=== PATIENT | female | born 1975 | race African-American/Black ===

== ENCOUNTER 2018-02-09 16:40 | Emergency (ER) | payer OTHER ==
[~2018-02-09] VITALS: Ht 167.6 cm; Wt 92.0 kg
[~2018-02-09 16:40] MED LIST: MULTI VITAMIN
[2018-02-09 16:41] VITALS: BP 104/66
[2018-02-09] MEDS ORDERED: ACETAMINOPHEN WITH CODEINE 300/30MG TABLET PO ONE (17:00)
== END 2018-02-09 17:37 | disposition home or self-care (01) ==
LOC: ER 17:32
DX: M54.2 Cervicalgia (principal); J45.909 Unspecified asthma, uncomplicated; Z88.0 Allergy status to penicillin; Z98.890 Other specified postprocedural states
CPT/HCPCS: 81025; 99283

== ENCOUNTER 2018-06-30 17:08 | Emergency (ER) | payer OTHER ==
[~2018-06-30] VITALS: Ht 175.3 cm; Wt 97.0 kg
[2018-06-30] MEDS ORDERED: BACITRACIN ZINC OINT UDPKT TOP ONE (23:00)
[2018-06-30 23:20] VITALS: BP 158/89
== END 2018-06-30 23:23 | disposition home or self-care (01) ==
LOC: ER 17:08
DX: S81.802A Unspecified open wound, left lower leg, initial encounter (principal); W34.09XA Accidental discharge from other specified firearms, initial encounter; Y93.89 Activity, other specified; Y92.89 Other specified places as the place of occurrence of the external cause; Y99.8 Other external cause status
CPT/HCPCS: 99282

== ENCOUNTER 2021-06-03 12:13 | Emergency (ER) | payer OTHER ==
[~2021-06-03] VITALS: Ht 180.3 cm; Wt 96.0 kg
[2021-06-03 12:19] VITALS: BP 110/62
== END 2021-06-03 14:52 | disposition home or self-care (01) ==
LOC: ER 12:13
DX: M79.662 Pain in left lower leg (principal); F12.10 Cannabis abuse, uncomplicated; J45.909 Unspecified asthma, uncomplicated; Z98.890 Other specified postprocedural states; Z87.828 Personal history of other (healed) physical injury and trauma; Z88.0 Allergy status to penicillin
CPT/HCPCS: 93971; 99284

== ENCOUNTER 2021-06-17 23:12 | Emergency (ER) | payer OTHER ==
[~2021-06-17] VITALS: Ht 175.3 cm; Wt 96.0 kg
[2021-06-18] MEDS ORDERED: HYDROCODONE/ACETAMINOPHEN 5/325MG TABLET PO STA (00:33)
[2021-06-18] MEDS ORDERED: ONDANSETRON 4MG ODT PO STA (00:33)
[2021-06-18] MEDS ORDERED: FAMOTIDINE 20MG TABLET PO ONE (00:45)
[2021-06-18 00:51] LABS: EOSINOPHILS % 3.6 % (0.0-5.0); HEMOGLOBIN. 10.2 g/dL (12.0-16.0); LYMPHOCYTES % 34.2 % (20.0-50.0); MEAN CORPUSCULAR HEMOGLOBIN 26.6 pg (28.0-32.0); MEAN PLATELET VOLUME 9.2 fl (7.4-10.4); MONOCYTES % 10.4 % (2.0-8.0); NEUTROPHILS % 50.8 % (40.0-76.0); PLATELET 310 x1000/uL (130-400); RED BLOOD CELL COUNT 3.83 mill/uL (4.2-5.4); RED CELL DISTRIBUTION WIDTH 14.9 % (11.6-14.6)
[2021-06-18 01:05] LABS: CHLORIDE 108 mEq/L (98-107)
[2021-06-18 01:15] LABS: CLARITY URINE CLEAR (CLEAR); COLOR URINE DARK YELLOW (YELLOW); KETONES URINE NEGATIVE (NEGATIVE); LEUKOCYTE ESTERASE URINE NEGATIVE (NEGATIVE); NITRITE URINE NEGATIVE (NEGATIVE); OCCULT BLOOD URINE NEGATIVE (NEGATIVE); PROTEIN URINE NEGATIVE (NEGATIVE); SPECIFIC GRAVITY URINE 1.017 (1.005-1.030); UROBILINOGEN URINE 0.2 E.U./dL (0.2-1.0)
[2021-06-18 01:36] LABS: PROTHROMBIN TIME 10.6 sec (9.6-11.0)
[2021-06-18] MEDS ORDERED: PROT20 MT (06:51)
[2021-06-18 08:50] VITALS: BP 100/75
== END 2021-06-18 08:50 | disposition home or self-care (01) ==
LOC: ER 23:12
DX: R10.11 Right upper quadrant pain (principal); J45.909 Unspecified asthma, uncomplicated; Z98.890 Other specified postprocedural states; Z88.0 Allergy status to penicillin
CPT/HCPCS: 36415; 76705; 80053; 81003; 83690; 85025; 85610; 99285; Q0162

== ENCOUNTER 2022-05-25 10:36 | Emergency (ER) | payer OTHER ==
[~2022-05-25] VITALS: Ht 175.3 cm; Wt 93.0 kg
[~2022-05-25 10:36] MED LIST changes: +PROT20 MT
[2022-05-25 10:43] VITALS: BP 109/55
[2022-05-25] MEDS ORDERED: ACETAMINOPHEN 325MG TABLET PO STA (12:31)
[2022-05-25] MEDS ORDERED: ONDANSETRON 4MG ODT PO STA (12:31)
[2022-05-25 13:06] LABS: BASOPHILS % 2.3 % (0.0-2.0); EOSINOPHILS % 4.1 % (0.0-5.0); HEMATOCRIT. 28.5 % (36.0-48.0); HEMOGLOBIN. 8.9 g/dL (12.0-16.0); LYMPHOCYTES % 29.2 % (20.0-50.0); MEAN CORPUSCULAR VOLUME 73.7 fL (81.0-99.0); MEAN PLATELET VOLUME 8.6 fl (7.4-10.4); MONOCYTES % 9.4 % (2.0-8.0); PLATELET 256 x1000/uL (130-400); RED BLOOD CELL COUNT 3.87 mill/uL (4.2-5.4); RED CELL DISTRIBUTION WIDTH 17.2 % (11.6-14.6)
[2022-05-25 13:12] LABS: CHLORIDE 107 mEq/L (98-107)
[2022-05-25 13:13] LABS: CLARITY URINE CLEAR (CLEAR); COLOR URINE YELLOW (YELLOW); KETONES URINE NEGATIVE (NEGATIVE); LEUKOCYTE ESTERASE URINE NEGATIVE (NEGATIVE); NITRITE URINE NEGATIVE (NEGATIVE); OCCULT BLOOD URINE NEGATIVE (NEGATIVE); PH URINE 5.5 (4.5-8.0); PROTEIN URINE NEGATIVE (NEGATIVE); SPECIFIC GRAVITY URINE 1.013 (1.005-1.030); UROBILINOGEN URINE 0.2 E.U./dL (0.2-1.0)
[2022-05-25 13:23] LABS: HCG SCREEN NEGATIVE
[2022-05-25] MEDS ORDERED: IBUP-2028 MT (15:31)
[2022-05-25] MEDS ORDERED: POLY17PO3 MT (15:31)
== END 2022-05-25 16:02 | disposition home or self-care (01) ==
LOC: ER 10:36
DX: R10.31 Right lower quadrant pain (principal); J45.909 Unspecified asthma, uncomplicated; Z98.890 Other specified postprocedural states
CPT/HCPCS: 36415; 74176; 80053; 81003; 81025; 83690; 84703; 85025; 99284; Q0162

== ENCOUNTER 2024-02-09 07:09 | Emergency (ER) | payer OTHER ==
[~2024-02-09] VITALS: Ht 175.3 cm; Wt 92.0 kg
[~2024-02-09 07:09] MED LIST changes: +IBUP-2028 MT; +POLY17PO3 MT
[2024-02-09 07:43] LABS: BASOPHILS % 1.1 % (0.0-2.0); EOSINOPHILS % 13.2 % (0.0-5.0); HEMATOCRIT. 34.8 % (36.0-48.0); HEMOGLOBIN. 11.1 g/dL (12.0-16.0); LYMPHOCYTES % 27.5 % (20.0-50.0); MEAN CORPUSCULAR HEMOGLOBIN 24.8 pg (28.0-32.0); MEAN CORPUSCULAR VOLUME 77.6 fL (81.0-99.0); MEAN PLATELET VOLUME 8.9 fl (7.4-10.4); MONOCYTES % 6.5 % (2.0-8.0); NEUTROPHILS % 51.7 % (40.0-76.0); PLATELET 326 x1000/uL (130-400); RED BLOOD CELL COUNT 4.48 mill/uL (4.2-5.4); RED CELL DISTRIBUTION WIDTH 22.1 % (11.6-14.6); WHITE BLOOD COUNT 4.2 x1000/uL (4.5-11.0)
[2024-02-09 07:44] LABS: ADD RBC MORPHOLOGY YES; DIFFERENTIAL COMMENT 1
[2024-02-09 07:55] LABS: CHLORIDE 108 mEq/L (98-107); POTASSIUM 3.6 mEq/L (3.5-5.1); SODIUM 141 mEq/L (136-145)
[2024-02-09 07:56] LABS: CALCIUM 9.5 mg/dL (8.7-10.4); CARBON DIOXIDE 24 mEq/L (21-32)
[2024-02-09 08:01] LABS: CREATININE 0.7 mg/dL (0.6-1.0); GLUCOSE 99 mg/dL (70-105); UREA NITROGEN BLOOD 7 mg/dL (9-23)
[2024-02-09 08:03] LABS: TROPONIN I HIGH SENSITIVITY < 4 ng/L (3.0-34)
[2024-02-09 08:10] LABS: HCG SCREEN NEGATIVE
[2024-02-09 08:12] VITALS: PULSE 63; RESP 18; O2SAT 98
[2024-02-09] MEDS: IPRATROPIUM BROMIDE (0.02%) 0.5MG/2.5ML NEB HHN STA (08:12)
[2024-02-09] MEDS: ALBUTEROL (0.083%) 2.5MG/3ML NEB HHN SCH (08:12)
[2024-02-09 08:32] VITALS: PULSE 60; RESP 18; O2SAT 100
[2024-02-09] MEDS: PREDNISONE 20MG TABLET PO STA (08:34)
[2024-02-09 09:05] VITALS: PULSE 66; RESP 18; O2SAT 100
[2024-02-09 09:08] LABS: CLARITY URINE CLEAR (CLEAR); COLOR URINE YELLOW (YELLOW); GLUCOSE URINE NEGATIVE (NEGATIVE); KETONES URINE NEGATIVE (NEGATIVE); LEUKOCYTE ESTERASE URINE NEGATIVE (NEGATIVE); NITRITE URINE NEGATIVE (NEGATIVE); OCCULT BLOOD URINE TRACE (NEGATIVE); PH URINE 5.5 (4.5-8.0); PROTEIN URINE NEGATIVE (NEGATIVE); SPECIFIC GRAVITY URINE 1.006 (1.005-1.030); UROBILINOGEN URINE 0.2 E.U./dL (0.2-1.0)
[2024-02-09 09:14] LABS: UCG SCREEN NEGATIVE
[2024-02-09 09:18] LABS: SQUAMOUS EPITHELIAL CELL URINE 1+ /lpf (RARE/1+)
[2024-02-09 09:19] LABS: RBC URINE NONE SEEN /hpf (0-2); WBC URINE 0-2 /hpf (0-2)
[2024-02-09 09:20] LABS: BACTERIA URINE TRACE
[2024-02-09] MEDS ORDERED: ALBU05 NEB (09:48)
[2024-02-09] MEDS ORDERED: ALBU6.7H15 INH (09:48)
[2024-02-09] MEDS ORDERED: P50 MT (09:48)
[2024-02-09 10:00] VITALS: BP 131/72; PULSE 82; RESP 18; TEMP 98.3
[2024-02-09 14:15] LABS: ANISOCYTOSIS 3+; MICROCYTOSIS 1+; PLATELET ESTIMATE NORMAL
== END 2024-02-09 10:25 | disposition home or self-care (01) ==
LOC: ER 07:09
DX: Z98.890 Other specified postprocedural states (principal); Z79.899 Other long term (current) drug therapy; J45.901 Unspecified asthma with (acute) exacerbation
CPT/HCPCS: 80048; 81003; 81025; 84703; 85025; 84484; 36415; 71045; 94640; 93005; 99285; J7512; Z7610 ×3

== ENCOUNTER 2024-02-16 04:24 | Emergency (ER) | payer OTHER ==
[~2024-02-16] VITALS: Ht 167.6 cm; Wt 95.0 kg
[~2024-02-16 04:24] MED LIST changes: +ALBU05 NEB; +ALBU6.7H15 INH; +P50 MT
[2024-02-16] MEDS ORDERED: P20 MT (08:29)
[2024-02-16] MEDS: PREDNISONE 20MG TABLET PO NR (08:32)
[2024-02-16 08:42] VITALS: PULSE 65; RESP 18; O2SAT 99
[2024-02-16] MEDS: ALBUTEROL (0.083%) 2.5MG/3ML NEB HHN SCH (08:42)
[2024-02-16] MEDS: IPRATROPIUM BROMIDE (0.02%) 0.5MG/2.5ML NEB HHN NR (08:42)
[2024-02-16] MEDS: ALBUTEROL (0.083%) 2.5MG/3ML NEB ONE (08:42)
[2024-02-16 09:13] VITALS: PULSE 70; RESP 18; O2SAT 99
[2024-02-16 09:43] VITALS: PULSE 67; RESP 18; O2SAT 99
[2024-02-16 10:13] VITALS: BP 141/74; PULSE 82; RESP 18; TEMP 98.4
== END 2024-02-16 10:21 | disposition home or self-care (01) ==
LOC: ER 04:24
DX: J45.901 Unspecified asthma with (acute) exacerbation (principal)
CPT/HCPCS: 71045; 94640; 99285; J7512; Z7610 ×3